=== PATIENT | female | born 1960 | race Caucasian/White ===

== ENCOUNTER → 2021-07-13 | Day surgery (SDC) | payer BC, OTHER ==
[~2021-07-13] MED LIST: CYMBALTA; FENTANYL CITRATE/PF 100MCG/2 ML INJ ONE; GLUCAGON FOR INJ 1 MG VIAL ONE; HYDROCODON-ACE1 EAC9; HYOSCYAMINE SULFATE 0.5 MG/ML INJ ONE; LIDOCAINE HCL 2% LOCAL INJ 5 ML SDV VIAL INJ ONE; METFORMIN HCL500 MG PO; MIDAZOLAM HCL 2 MG/2 ML VIAL ONE; PHENTERMINE H37.5 MG PO; PROPOFOL IV EMULSION 10 MG/ML 20 ML VIAL ONE; naproxen
[2021-07-13 17:09] VITALS: BP 146/84
== END | disposition home or self-care (01) ==
LOC: OR 13:24
PROVIDERS: ATTEND Internal Medicine Gastroenterology
DX: K59.09 Other constipation (principal); K62.1 Rectal polyp; K62.5 Hemorrhage of anus and rectum; K64.8 Other hemorrhoids; R73.03 Prediabetes; Z88.6 Allergy status to analgesic agent; Z01.810 Encounter for preprocedural cardiovascular examination; Z01.812 Encounter for preprocedural laboratory examination; Z20.822 Contact with and (suspected) exposure to COVID-19; Z79.84 Long term (current) use of oral hypoglycemic drugs; Z68.30 Body mass index [BMI] 30.0-30.9, adult
CPT/HCPCS: 36415; 45384; 82948; 93005; J1610; J1980; J2001; J2250; J2704; J3010; U0002; 45378